=== PATIENT | female | born 1990 | race Caucasian/White ===

== ENCOUNTER 2022-02-17 18:31 | Emergency (ER) | payer OTHER, SELFPAY ==
[2022-02-17] VITALS (8 sets, daily range): BP systolic 119–127; BP diastolic 71–90; PULSE 100–118; RESP 15–24; TEMP 36.7; O2SAT 98–100
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
[2022-02-17] MEDS: ACETAMINOPHEN 500 MG TABLET 1000 MG PO (20:00)
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
--- NOTE | 2022-02-17 20:41 | PC.NURSE ---
Attempted to call [facility] with no answer. Will attempt to call again
--- NOTE | 2022-02-17 20:59 | PC.NURSE ---
Patient ambulated with no complications. Patient was able to walk with steady gate
== END 2022-02-17 21:24 | disposition home or self-care (01) ==
PROVIDERS: Emergency Provider Preventive Medicine Aerospace Medicine
DX: S19.9XXA Unspecified injury of neck, initial encounter (principal); R56.9 Unspecified convulsions; V44.6XXA Car passenger injured in collision with heavy transport vehicle or bus in traffic accident, initial encounter
CPT/HCPCS: 70450; 72125; 99284; A9270; L0140